=== PATIENT | female | born 2000 | race Caucasian/White ===

== ENCOUNTER → 2018-03-28 | Outpatient (CLI) | payer OTHER ==
[2018-03-28 20:08] LABS: BASO # 0.1 10^3/uL (0.0-0.2); BASO % 0.8 % (0.0-1.0); EOS # 0.1 10^3/uL (0.0-0.50); EOS % 1.3 % (0.0-3.0); HEMATOCRIT 36.8 % (36.0-47.0); HEMOGLOBIN 11.4 g/dl (12.0-15.5); IMMATURE GRANULOCYTE % 0.3 % (0-3.0); LYMPH # 1.9 10^3/uL (1.5-6.5); LYMPH % 24.4 % (24.0-44.0); MEAN CORPUSCULAR HEMOGLOBIN 24.6 pg (27.0-33.0); MEAN CORPUSCULAR VOLUME 79.5 fl (80.0-96.0); MONO # 0.6 10^3/uL (0.0-0.8); NEUTROPHILS # 5.2 10^3/uL (1.8-7.7); NEUTROPHILS % 65.2 % (36.0-66.0); PLATELET COUNT, AUTOMATED 327 10^3/uL (150-450); RED BLOOD COUNT 4.63 10^6/uL (4.00-5.40); RED CELL DISTRIBUTION WIDTH 17.2 % (11.5-14.5)
[2018-03-28 21:20] LABS: CHLAMYDIA DNA AMPLIFICATION NEGATIVE (NEGATIVE); GC DNA AMPLIFICATION NEGATIVE (NEGATIVE)
[2018-03-29 10:55] LABS: RUBELLA IgG QUALITATIVE IMMUNE (IMMUNE)
[2018-03-29 11:00] LABS: HBsAg Prenatal NEGATIVE (NEGATIVE)
[2018-03-29 11:25] LABS: HEPATITIS C VIRUS ABY INDEX 0.5 INDEX (<0.8)
[2018-03-29 11:26] LABS: HIV 1&2 SCREEN CENTAUR NEGATIVE (NEGATIVE)
== END ==
LOC: M SMT 13:32
DX: Z36.89 Encounter for other specified antenatal screening (principal)
CPT/HCPCS: 86762

== ENCOUNTER → 2018-05-11 | Outpatient (CLI) | payer OTHER | LOC: M RAD 17:20 | DX: Z36.89 Encounter for other specified antenatal screening (principal); Z3A.19 19 weeks gestation of pregnancy | CPT/HCPCS: 76811 ==

== ENCOUNTER → 2018-06-29 | Outpatient (CLI) | payer OTHER | LOC: M RAD 08:30 | DX: O32.1XX0 Maternal care for breech presentation, not applicable or unspecified (principal); Z36.89 Encounter for other specified antenatal screening; Z3A.26 26 weeks gestation of pregnancy | CPT/HCPCS: 76816 ==

== ENCOUNTER → 2018-07-31 | Outpatient (CLI) | payer OTHER | LOC: M RAD 10:40 | DX: Z34.83 Encounter for supervision of other normal pregnancy, third trimester (principal); Z3A.30 30 weeks gestation of pregnancy | CPT/HCPCS: 76816 ==

== ENCOUNTER → 2018-08-29 | Outpatient (CLI) | payer OTHER ==
[2018-08-29 19:16] LABS: ALT/SGPT 18 U/L (12-78); AST/SGOT 10 U/L (7-37); BILIRUBIN,TOTAL 0.1 MG/DL (0.2-1.0); CREATININE FOR GFR 0.61 MG/DL (0.55-1.30); LDH LACTATE DEHYDROGENASE 189 U/L (84-246); URIC ACID 3.1 MG/DL (2.6-6.0)
[2018-08-29 19:17] LABS: HEMATOCRIT 31.5 % (36.0-47.0); HEMOGLOBIN 9.3 g/dl (12.0-15.5); MEAN CORPUSCULAR HEMOGLOBIN 24.3 pg (27.0-33.0); MEAN CORPUSCULAR HGB CONC 29.5 g/dl (32.0-36.5); MEAN CORPUSCULAR VOLUME 82.2 fl (80.0-96.0); PLATELET COUNT, AUTOMATED 280 10^3/uL (150-450); RED BLOOD COUNT 3.83 10^6/uL (4.00-5.40); RED CELL DISTRIBUTION WIDTH 15.9 % (11.5-14.5); WHITE BLOOD COUNT 9.2 10^3/uL (4.0-10.0)
== END ==
LOC: M SMT 15:14
DX: Z36.89 Encounter for other specified antenatal screening (principal); R03.0 Elevated blood-pressure reading, without diagnosis of hypertension
CPT/HCPCS: 84460

== ENCOUNTER → 2018-08-29 | Outpatient (CLI) | payer OTHER ==
[2018-08-29 13:47] LABS: BASO % 0.5 % (0.0-1.0); EOS # 0.1 10^3/uL (0.0-0.50); EOS % 0.6 % (0.0-3.0); HEMATOCRIT 31.1 % (36.0-47.0); HEMOGLOBIN 9.3 g/dl (12.0-15.5); IMMATURE GRANULOCYTE % 0.4 % (0-3.0); LYMPH # 1.6 10^3/uL (1.5-6.5); LYMPH % 20.5 % (24.0-44.0); MEAN CORPUSCULAR HEMOGLOBIN 24.4 pg (27.0-33.0); MEAN CORPUSCULAR HGB CONC 29.9 g/dl (32.0-36.5); MEAN CORPUSCULAR VOLUME 81.6 fl (80.0-96.0); MONO # 0.5 10^3/uL (0.0-0.8); MONO % 6.7 % (0.0-5.0); NEUTROPHILS # 5.6 10^3/uL (1.8-7.7); NEUTROPHILS % 71.3 % (36.0-66.0); PLATELET COUNT, AUTOMATED 278 10^3/uL (150-450); RED BLOOD COUNT 3.81 10^6/uL (4.00-5.40); RED CELL DISTRIBUTION WIDTH 15.9 % (11.5-14.5); WHITE BLOOD COUNT 7.9 10^3/uL (4.0-10.0)
[2018-08-29 14:10] LABS: GLUCOSE CHALLENGE TEST 1 HOUR 116 MG/DL (LESS THAN 140)
== END ==
LOC: M SMT 08:49
DX: Z36.89 Encounter for other specified antenatal screening (principal)

== ENCOUNTER → 2018-09-04 | Outpatient (REF) | payer OTHER ==
[2018-09-04 19:12] LABS: TOTAL PROTEIN,RANDOM URINE 36.2 MG/DL (0.0-12.0)
== END ==
LOC: M LAB REF 17:07
DX: O16.3 Unspecified maternal hypertension, third trimester (principal)
CPT/HCPCS: 82570

== ENCOUNTER 2018-09-12 12:51 | Inpatient (IN) | payer OTHER ==
[2018-09-15 12:58] LABS: HEMATOCRIT 31.5 % (36.0-47.0); HEMOGLOBIN 9.6 g/dl (12.0-15.5); MEAN CORPUSCULAR HEMOGLOBIN 24.8 pg (27.0-33.0); MEAN CORPUSCULAR HGB CONC 30.5 g/dl (32.0-36.5); MEAN CORPUSCULAR VOLUME 81.4 fl (80.0-96.0); PLATELET COUNT, AUTOMATED 218 10^3/uL (150-450); RED BLOOD COUNT 3.87 10^6/uL (4.00-5.40); RED CELL DISTRIBUTION WIDTH 17.7 % (11.5-14.5); WHITE BLOOD COUNT 7.2 10^3/uL (4.0-10.0)
[2018-09-15 13:18] LABS: ALT/SGPT 15 U/L (12-78); AST/SGOT 15 U/L (7-37); BILIRUBIN,TOTAL 0.1 MG/DL (0.2-1.0); CREATININE FOR GFR 0.64 MG/DL (0.55-1.30); LDH LACTATE DEHYDROGENASE 218 U/L (84-246); URIC ACID 3.6 MG/DL (2.6-6.0)
[2018-09-15] MEDS: miSOPROStol 50 MCG 1/2 TAB (S0191) PO ×2 (13:49→17:59)
[2018-09-15] MEDS: OXYTOCIN DRIP 30 UNITS in APPROPRIATE DILUENT 1 EA IV (22:16)
[2018-09-15] MEDS: LR 1,000 ML IV (22:16)
[2018-09-16 00:37] LABS: HEMATOCRIT 29.5 % (36.0-47.0); MEAN CORPUSCULAR HEMOGLOBIN 25.1 pg (27.0-33.0); MEAN CORPUSCULAR HGB CONC 30.5 g/dl (32.0-36.5); MEAN CORPUSCULAR VOLUME 82.4 fl (80.0-96.0); PLATELET COUNT, AUTOMATED 196 10^3/uL (150-450); RED BLOOD COUNT 3.58 10^6/uL (4.00-5.40); RED CELL DISTRIBUTION WIDTH 17.5 % (11.5-14.5); WHITE BLOOD COUNT 8.6 10^3/uL (4.0-10.0)
[2018-09-16] MEDS ORDERED: FENTANYL 2MCG/ML ROPIVACAINE 0.2% IN 0.9% NACL 100ML IVBAG As Ordered (00:48)
[2018-09-16] MEDS: FENTANYL/ROPIVACAINE/NACL BAG 100 ML EPIDURAL (01:08)
[2018-09-16] MEDS ORDERED: NALOXONE INJ 0.4 MG/1 ML VIAL (J2310) IV (02:00)
[2018-09-16] MEDS ORDERED: diphenhydrAMINE INJ 50MG/ML VIAL (J1200) IV (02:00)
[2018-09-16] MEDS ORDERED: EPIDURAL/PCA KEYS XX (02:00)
[2018-09-16] MEDS ORDERED: REFRIGERATOR IV KEYS XX (02:00)
[2018-09-16] MEDS ORDERED: ONDANSETRON 4MG/2ML VIAL (J2405) IV (02:00)
[2018-09-16] MEDS ORDERED: ePHEDrine SULFATE 25 MG/5 ML(5MG/ML) SYRINGE IV (02:00)
[2018-09-16] MEDS ORDERED: EPIDURAL COMMENT XX (02:00)
[2018-09-16] MEDS: OXYTOCIN DRIP 30 UNITS in APPROPRIATE DILUENT 1 EA IV (07:14)
[2018-09-16] MEDS ORDERED: MEASLES,MUMPS,RUBELLA VACCINE INJ (MMR-II) (90707) SC (07:15)
[2018-09-16] MEDS ORDERED: DOCUSATE SODIUM 100 MG CAP PO (07:15)
[2018-09-16] MEDS ORDERED: METHYLERGONOVINE MALEATE 0.2 MG TAB PO (07:15)
[2018-09-16] MEDS ORDERED: ACETAMINOPHEN 500 MG TAB PO (07:15)
[2018-09-16] MEDS ORDERED: RHOGAM 300 MCG (1500 IU) INJ (J2790) IM (07:15)
[2018-09-16] MEDS ORDERED: IBUPROFEN 800 MG TAB PO (07:15)
[2018-09-16] MEDS ORDERED: DIBUCAINE 1% OINTMENT 30GM TOP (07:15)
[2018-09-16] MEDS: FERROUS SULFATE 325MG TAB PO (09:21)
[2018-09-16] MEDS: PRENATAL VITAMINS CHEWABLE TABLET PO (09:21)
[2018-09-17] MEDS: FERROUS SULFATE 325MG TAB PO (08:16)
[2018-09-17] MEDS: PRENATAL VITAMINS CHEWABLE TABLET PO (08:16)
== END 2018-09-17 11:25 | disposition home or self-care (01) | DRG 807 ==
LOC: M LAB REF 12:51 → M LDI 09-15 12:04 → M OBS 09-16 08:51
PROC: 3E033VJ Introduction of Other Hormone into Peripheral Vein, Percutaneous Approach (ICD-10-PCS; 2018-09-15)
PROC: 10E0XZZ Delivery of Products of Conception, External Approach (ICD-10-PCS; principal; 2018-09-16)
PROC: 10D17Z9 Manual Extraction of Products of Conception, Retained, Via Natural or Artificial Opening (ICD-10-PCS; 2018-09-16)
DX: O13.4 Gestational [pregnancy-induced] hypertension without significant proteinuria, complicating childbirth (principal); Z37.0 Single live birth; D64.9 Anemia, unspecified; O99.02 Anemia complicating childbirth; Z3A.37 37 weeks gestation of pregnancy; O73.1 Retained portions of placenta and membranes, without hemorrhage

== ENCOUNTER → 2018-09-12 | Outpatient (CLI) | payer OTHER ==
[~2018-09-12] MED LIST: FERR325T3 PO; IBUP-1114 PO; MAPA500T17 PO; PRENTAB9 PO
--- NOTE | 2018-09-13 07:03 | REP ---
Clinical: Growth evaluation. Comparison: 07/31/2018 . Findings: Examination demonstrates a single live intrauterine in cephalic presentation. motion is identified by technologist. Placenta is noted anterior and grade grade II without evidence for placenta previa or abruption. Amniotic fluid volume is normal. No evidence for nuchal cord. Gestational age by LMP 36 weeks 5 days with MEE 10/05/2018 . Gestational age by current measurements 37 weeks 3 days with MEE 09/30/2018 . FHR equals 136 beats per minute. BPD 9.4 cm 38 weeks 2 days HC 33.9 cm 39 weeks 0 days AC 34.0 cm 37 weeks 6 days FL 7.3 cm 37 weeks 3 day HL 6.0 cm 34 weeks 5 days HC/AC ratio 1.00 Estimated weight 3352 grams ( 75th percentile). Amniotic fluid index: 7.6 cm (7.6 - 24.6) Umbilical cord SD ratio: 2.58 (1.72 - 2.72). Impression: Single live advanced gestation in cephalic presentation demonstrating relatively appropriate interval growth. Electronically Signed by Leonardo Ervin MD 09/13/2018 06:55 A
== END ==
LOC: M RAD 14:22
PROVIDERS: ATTEND Advanced Practice Midwife
DX: Z36.89 Encounter for other specified antenatal screening (principal); Z3A.37 37 weeks gestation of pregnancy

== ENCOUNTER → 2021-02-25 | Outpatient (CLI) | payer OTHER ==
[~2021-02-25] MED LIST changes: -MAPA500T17 PO; +MAPA500T2 PO
[2021-02-25 13:06] LABS: BASO # 0.1 10^3/uL (0.0-0.2); BASO % 0.9 % (0.0-1.0); EOS # 0.2 10^3/uL (0.0-0.5); EOS % 3.3 % (0.0-3.0); HEMATOCRIT 41.6 % (36.0-47.0); HEMOGLOBIN 13.5 g/dl (12.0-15.5); LYMPH # 2.2 10^3/uL (1.5-5.0); LYMPH % 34.6 % (24.0-44.0); MEAN CORPUSCULAR HEMOGLOBIN 28.7 pg (27.0-33.0); MEAN CORPUSCULAR HGB CONC 32.5 g/dl (32.0-36.5); MEAN CORPUSCULAR VOLUME 88.5 fl (80.0-96.0); MONO # 0.5 10^3/uL (0.0-0.8); MONO % 7.9 % (2.0-8.0); NEUTROPHILS # 3.4 10^3/uL (1.5-8.5); NEUTROPHILS % 53.1 % (36.0-66.0); PLATELET COUNT, AUTOMATED 277 10^3/uL (150-450); WHITE BLOOD COUNT 6.5 10^3/uL (4.0-10.0)
[2021-02-25 13:42] LABS: ALBUMIN 3.4 GM/DL (3.2-5.2); ALT/SGPT 37 U/L (12-78); BILIRUBIN,TOTAL 0.2 MG/DL (0.2-1.0); BLOOD UREA NITROGEN 12 MG/DL (7-18); CALCIUM LEVEL 9.5 MG/DL (8.5-10.1); CARBON DIOXIDE LEVEL 27 MEQ/L (21-32); CHLORIDE LEVEL 108 MEQ/L (98-107); CREATININE FOR GFR 0.77 MG/DL (0.55-1.30); FOLATE 15.4 NG/ML; FREE T4 0.98 NG/DL (0.76-1.46); GLOMERULAR FILTRATION RATE > 60.0 (>60); GLUCOSE, FASTING 81 MG/DL (70-100); POTASSIUM SERUM 4.3 MEQ/L (3.5-5.1); SODIUM LEVEL 140 MEQ/L (136-145); THYROID STIMULATING HORMONE 0.848 uIU/ML (0.358-3.740); TOTAL 25(OH) VITAMIN D 25.1 NG/ML (30.0-100.0); TOTAL PROTEIN 7.2 GM/DL (6.4-8.2); VITAMIN B12 LEVEL 420 PG/ML
[2021-02-25 14:02] LABS: HEMOGLOBIN A1c 5.2 %
== END ==
LOC: M LAB 12:15
PROVIDERS: ATTEND Physician Assistant
DX: Z13.29 Encounter for screening for other suspected endocrine disorder (principal)